=== PATIENT | female | born 1980 | race Asian ===

== ENCOUNTER 2016-07-22 10:40 | Inpatient (IN) | payer OTHER ==
[2016-07-22] VITALS (33 sets, daily range): BP systolic 97–130; BP diastolic 57–85
[~2016-07-22] VITALS: Ht 160 cm; Wt 74.4 kg
[2016-07-22] MEDS ORDERED: D5 LR IV SOLUTION 1,000 ML IV ONE (10:53)
[2016-07-22] MEDS ORDERED: D5 LR IV SOLUTION 1,000 ML IV SCH (11:10)
[2016-07-22 11:21] LABS: BASOPHILS % (AUTO) 1 % (0-10); EOSINOPHILS # (AUTO) 0.1 10^3/uL (0.0-0.3); EOSINOPHILS % (AUTO) 2 % (0-10); LYMPHOCYTES # (AUTO) 1.5 X 10^3 (1.0-4.0); LYMPHOCYTES % (AUTO) 19 % (12-44); MEAN CORPUSCULAR HEMOGLOBIN 30 PG (25-34); MEAN CORPUSCULAR HGB CONC 33 G/DL (32-36); MEAN CORPUSCULAR VOLUME 90 FL (80-99); MEAN PLATELET VOLUME 9.5 FL (7.4-10.4); MONOCYTES # (AUTO) 0.6 X 10^3 (0.0-1.0); MONOCYTES % (AUTO) 7 % (0-12); NEUTROPHILS # (AUTO) 5.7 X 10^3 (1.8-7.8); NEUTROPHILS % (AUTO) 72 % (42-75); PLATELET COUNT 249 10^3/uL (130-400); RED BLOOD COUNT 3.76 10^6/uL (4.35-5.85); RED CELL DISTRIBUTION WIDTH 12.9 % (10.0-14.5); WHITE BLOOD COUNT 7.9 10^3/uL (4.3-11.0)
[2016-07-22] MEDS ORDERED: LACTATED RINGERS 1,000 ML IV ONE ×2 (11:47→13:22)
[2016-07-22] MEDS ORDERED: SUFENTA 0.6MCG/ML BUPIVA 0.125 100 ML ONE (12:05)
[2016-07-22] MEDS ORDERED: fentaNYL INJECTION 100 MCG/2 ML AMP ONE (12:17)
[2016-07-22] MEDS ORDERED: BUPIVACAINE 0.25% 30 ML (SENSORCAINE) VIAL ONE (12:17)
[2016-07-22] MEDS ORDERED: CATHETER FLUSH 10 ML SYR IV PRN (13:30)
[2016-07-22] MEDS ORDERED: diphenhydrAMINE 50 MG/ML INJ (BENADRYL) IV PRN (13:30)
[2016-07-22] MEDS ORDERED: NALOXONE 0.4 MG/ML 1 ML (NARCAN) VIAL IV PRN (13:30)
[2016-07-22] MEDS ORDERED: ONDANSETRON 4 MG/2 ML (SDV) Z0FRAN IV PRN (13:30)
[2016-07-22] MEDS ORDERED: EPIDURAL (SUFENTA 0.6MCG/ML BUPIVA 0.125%) 100 ML BAG EPI SCH (13:30)
[2016-07-22] MEDS ORDERED: fentaNYL INJECTION 100 MCG/2 ML AMP INJ ONE (13:30)
[2016-07-22] MEDS ORDERED: CATHETER FLUSH 10 ML SYR IV SCH (14:00)
[2016-07-22] MEDS ORDERED: OXYTOCIN/NORMAL SALINE 500 ML IV SCH ×2 (14:18→15:59)
[2016-07-22] MEDS ORDERED: TETANUS,DIPTH,PERTUSS P/F (BOOSTRIX) 0.5 ML VIAL IM ONE (16:00)
[2016-07-22] MEDS ORDERED: MEASLES,MUMPS,RUBELLA 1 EA INJ SC ONE (16:00)
[2016-07-22] MEDS ORDERED: BENZOCAINE/MENTHOL (DERMOPLAST) 56 ML CAN TP PRN (16:00)
[2016-07-22] MEDS ORDERED: oxyCODONE/APAP 10/325MG (PERCOCET 10) TABLET PO PRN (16:00)
--- NOTE | 2016-07-22 16:05 | History & Physical ---
History and Physical TERM AT 38-5/7 WEEKS' GESTATION IN LABORthis patient is a 35-year-old [place] female with an EDC of 5 [phone] putting her at 38-5/7 weeks gestation. She was seen in clinic on Friday and Friday and found to be dilating from 4-5 and now is almost 6 cm in clinic. She was sent to labor and delivery as she was bartolo every 6 or 8 minutes. There was a bulging bag in the vagina dictated that this was felt like just prior to her first delivery which happened after only 3 hours of labor. GBS culture after 35 weeks gestation was negative. Patient denies rupture membranes. She has had some spotting Allergies are none Indications are vitamins Family social obstetric surgical and medical histories are per the antepartum record HEENT exam is normal Neck is supple no lymphadenopathy no thyromegaly Abdomen is gravid soft nontender nondistended Extreme show clubbing cyanosis. There is no Homans sign. Pelvic exam shows cervix at last check in my clinic that was right at 6 cm, 60- 70 percent effaced, 0-1 station bulging bag into the vagina vertex presentation and intact membranes Laboratory Tests 07/22/16 10:50 assessment and plan term at 38-5/7 weeks' gestation with a prolonged latent labor and advanced cervical dilation in clinic. She was bartolo cystoscopy with early labor. Patient now been admitted has labored review hours and is completely dilated delivery is imminent. Allergies and Home Medications Allergies Coded Allergies: No Known Drug Allergies (Unverified , 07/22/16) Clinical Quality Measures DVT/VTE Risk/Contraindication: Risk Factor Score Per Nursin RFS Level Per Nursing on Admit: 1=Low/No VTE PPX CUBA ALMEIDA MD July 22, 2016 4:05 pm
[2016-07-22] MEDS: KETOROLAC 30 MG/ML VIAL IV SCH ×2 (18:24→23:00)
[2016-07-22] MEDS: DOCUSATE SODIUM 100 MG (COLACE) CAP PO SCH (22:15)
[2016-07-23 01:00] VITALS: BP 97/52
[2016-07-23] MEDS: KETOROLAC 30 MG/ML VIAL IV SCH (04:29)
[2016-07-23 05:20] VITALS: BP 91/53
--- NOTE | 2016-07-23 06:00 | OPERATIVE REPORT ---
DATE OF SERVICE: 07/22/2016 DELIVERY NOTE: The patient delivered by term, spontaneous vaginal delivery of a viable female infant with Apgars of 8 and 9 at 1 and 5 minutes respectively, weight was 7 pounds 6 ounces, time was 1641. The infant was bulb suctioned on delivery of the head and again on completion of the delivery. The patient only pushed twice to affect the delivery. The had spontaneous cry, moved all the extremities, was quickly pink. Had excellent tone and reflexes. The umbilical cord was doubly clamped when it became pulseless. Father cut the cord. The baby was passed to mom's abdomen. The placenta delivered spontaneously april Bee. It was normal with a 3 vessel cord. It was sent to pathology secondary to her prolonged, latent labor. Cord bloods were obtained including an umbilical cord arterial blood gas due to patient having some decels and relatively poor variability throughout the terminal part of the labor. Blood gas was reported as 7.28. The cervix, rectum, perineum and vagina were examined and found intact, except for a left inner labia majora first degree laceration of approximately 5 cm. This was repaired with a single suture of 3-0 Vicryl in a running locked fashion to good reapproximation and good hemostasis. The sponge and needle counts were correct on completion of delivery and the repair. Estimated blood loss was between 200-250 mL. The patient tolerated the delivery and the repair well and remained in the LDR. The baby remained with the mom. Job ID: [id number] DocumentID: [id number] Dictated Date: 07/22/2016 16:56:25 Industrial Equipment Mechanic Date: 07/23/2016 05:59:57 Dictated By: CUBA ALMEIDA MD
--- NOTE | 2016-07-23 07:49 | Progress Note-Standard ---
Standard Progress Note Progress Notes/Assess & Plan Progress/Assessment & Plan this patient is without complaint. She is ambulating, voiding, tolerating fairly well, has good pain control. Vital Signs Date Time Temp Pulse Resp B/P (MAP) Pulse Ox O2 Delivery O2 Flow Rate FiO2 07/23/16 05:20 98.2 62 18 91/53 96 07/23/16 01:00 98.2 67 18 97/52 97 07/22/16 22:15 98.2 74 18 97/57 07/22/16 18:40 62 18 130/70 07/22/16 18:30 98.2 07/22/16 18:15 74 18 113/73 07/22/16 18:00 68 18 108/66 07/22/16 17:45 66 18 106/68 07/22/16 17:30 67 18 107/61 07/22/16 17:15 64 18 115/63 07/22/16 17:00 75 18 113/69 07/22/16 16:45 76 18 109/66 07/22/16 16:37 97.6 07/22/16 16:30 64 18 122/81 99 07/22/16 16:15 63 18 114/78 99 07/22/16 16:00 63 18 105/70 98 07/22/16 15:45 63 18 100/58 98 07/22/16 15:30 66 18 105/73 98 07/22/16 15:15 58 18 106/68 98 07/22/16 15:00 58 18 98 07/22/16 14:45 64 18 98 07/22/16 14:30 60 18 99/59 97 07/22/16 14:15 76 18 107/71 97 07/22/16 14:00 65 18 109/70 97 07/22/16 13:45 61 18 110/69 96 07/22/16 13:30 61 18 110/67 98 07/22/16 13:15 67 18 108/69 97 07/22/16 13:00 68 18 112/70 97 07/22/16 12:55 73 18 100/66 97 07/22/16 12:50 74 18 114/70 98 07/22/16 12:45 97.9 68 18 112/70 97 07/22/16 12:40 74 18 118/76 99 07/22/16 12:35 75 18 119/85 99 07/22/16 12:30 72 18 121/83 99 07/22/16 12:25 76 18 122/80 99 07/22/16 12:15 71 18 108/69 07/22/16 11:45 78 18 101/62 07/22/16 11:15 73 18 101/60 07/22/16 10:45 74 18 121/76 I & O 07/23/16 07:00 Intake Total 500 ml Balance 500 ml vital signs are stable. Patient is afebrile. Fundus is firm below the umbilicus and nontender. Extreme show no clubbing or cyanosis. There is no Homans sign. There is some pretibial pitting is normal. Assessment and plan day number 1 status post term spontaneous vaginal delivery at 38-5/7 weeks. Patient is doing well and plan is for discharge home tomorrow although patient request discharged today we will allow. Final Diagnosis 38-5/7 weeks' gestation in spontaneous vaginal delivery CUBA ALMEIDA MD July 23, 2016 07:49
[2016-07-23] MEDS ORDERED: IBUP-1780 PO (07:51)
[2016-07-23] MEDS ORDERED: DOCU100C37 PO (07:51)
[2016-07-23] MEDS ORDERED: OXYC-465 PO (07:51)
--- NOTE | 2016-07-23 07:52 | Discharge Instructions ---
Discharge Instructions Discharge Medications New, Converted or Re-Newed RX: RX on Chart Patient Instructions Patient Instructions: as directed Return to The Hospital For: as directed Activity & Diet Discharge Diet: No Restrictions Activity as Tolerated: No Orders-Post D/C & Referrals Follow Up Appt: Call to make follow up appt. for patient in 4 weeks. Activity Per routine post vaginal delivery instructions. Diet as tolerated Patient may shower or tub bathe as desired. CUBA ALMEIDA MD July 23, 2016 07:52
[2016-07-23 09:36] VITALS: BP 123/59
[2016-07-23] MEDS: DOCUSATE SODIUM 100 MG (COLACE) CAP PO SCH ×2 (09:38→19:59)
[2016-07-23] MEDS ORDERED: TETANUS,DIPTH,PERTUSS P/F (BOOSTRIX) 0.5 ML VIAL IM ONE (10:35)
[2016-07-23] MEDS ORDERED: IBUPROFEN 800 MG (MOTRIN) TAB PO ONE (10:43)
[2016-07-23] MEDS: IBUPROFEN 800 MG (MOTRIN) TAB PO SCH ×3 (10:47→23:30)
--- NOTE | 2016-07-23 11:37 | Anesthesia-Regional Post-Op ---
Regional Patient Condition Mental Status: Alert, Oriented x3 Circulation: Same as Pre-Op Headache: Absent Sensation: Full Recovery Motor Block: Absent Post Op Complications Complications None Follow Up Care/Instructions Patient Instructions None needed. Anesthesia/Patient Condition Patient is doing well, no complaints, stable vital signs, no apparent adverse anesthesia problems. No complications reported per nursing. CISCO PLAZA CRNA July 23, 2016 11:37
[2016-07-23 14:00] VITALS: BP 91/52
[2016-07-23 18:00] VITALS: BP 92/64
[2016-07-23 23:30] VITALS: BP 103/67
[2016-07-24] MEDS: IBUPROFEN 800 MG (MOTRIN) TAB PO SCH ×2 (05:32→11:42)
[2016-07-24 05:36] VITALS: BP 100/68
--- NOTE | 2016-07-24 07:35 | Progress Note-Standard ---
Standard Progress Note Progress Notes/Assess & Plan Progress/Assessment & Plan this patient is without complaint. She is ambulating, voiding, tolerating fairly well, has good pain control. Vital Signs Date Time Temp Pulse Resp B/P (MAP) Pulse Ox O2 Delivery O2 Flow Rate FiO2 07/23/16 05:20 98.2 62 18 91/53 96 07/23/16 01:00 98.2 67 18 97/52 97 07/22/16 22:15 98.2 74 18 97/57 07/22/16 18:40 62 18 130/70 07/22/16 18:30 98.2 07/22/16 18:15 74 18 113/73 07/22/16 18:00 68 18 108/66 07/22/16 17:45 66 18 106/68 07/22/16 17:30 67 18 107/61 07/22/16 17:15 64 18 115/63 07/22/16 17:00 75 18 113/69 07/22/16 16:45 76 18 109/66 07/22/16 16:37 97.6 07/22/16 16:30 64 18 122/81 99 07/22/16 16:15 63 18 114/78 99 07/22/16 16:00 63 18 105/70 98 07/22/16 15:45 63 18 100/58 98 07/22/16 15:30 66 18 105/73 98 07/22/16 15:15 58 18 106/68 98 07/22/16 15:00 58 18 98 07/22/16 14:45 64 18 98 07/22/16 14:30 60 18 99/59 97 07/22/16 14:15 76 18 107/71 97 07/22/16 14:00 65 18 109/70 97 07/22/16 13:45 61 18 110/69 96 07/22/16 13:30 61 18 110/67 98 07/22/16 13:15 67 18 108/69 97 07/22/16 13:00 68 18 112/70 97 07/22/16 12:55 73 18 100/66 97 07/22/16 12:50 74 18 114/70 98 07/22/16 12:45 97.9 68 18 112/70 97 07/22/16 12:40 74 18 118/76 99 07/22/16 12:35 75 18 119/85 99 07/22/16 12:30 72 18 121/83 99 07/22/16 12:25 76 18 122/80 99 07/22/16 12:15 71 18 108/69 07/22/16 11:45 78 18 101/62 07/22/16 11:15 73 18 101/60 07/22/16 10:45 74 18 121/76 I & O 07/23/16 07:00 Intake Total 500 ml Balance 500 ml vital signs are stable. Patient is afebrile. Fundus is firm below the umbilicus and nontender. Extreme show no clubbing or cyanosis. There is no Homans sign. There is some pretibial pitting is normal. Assessment and plan day number 1 status post term spontaneous vaginal delivery at 38-5/7 weeks. Patient is doing well and plan is for discharge home tomorrow although patient request discharged today we will allow. July 24, 2016 Patient without complaint. She is ambulating, voiding, tolerating by mouth well , denies chest pain, denies shortness of breath, denies nausea vomiting, has good pain control and is requesting discharge home. Vital Signs Date Time Temp Pulse Resp B/P (MAP) Pulse Ox O2 Delivery O2 Flow Rate FiO2 07/24/16 05:36 97.0 62 20 100/68 98 07/23/16 23:30 97.3 68 18 103/67 95 07/23/16 18:00 98.0 75 16 92/64 98 07/23/16 14:00 97.8 71 16 91/52 98 07/23/16 09:36 98.1 72 18 123/59 vital signs are stable. Patient afebrile. Fundus is firm below the umbilicus and nontender. Extremities show no clubbing cyanosis. There is no Homans sign. There is some pretibial pitting edema that is normal. Assessment and plan day number 2 doing well. Plan is for discharge home with follow-up in clinic Final Diagnosis 38 5/7 weeks' gestation with spontaneous vaginal delivery CUBA ALMEIDA MD July 24, 2016 7:35 am
[2016-07-24 09:15] VITALS: BP 101/65
[2016-07-24] MEDS: DOCUSATE SODIUM 100 MG (COLACE) CAP PO SCH (09:41)
[2016-07-24 13:15] VITALS: BP 101/65
== END 2016-07-24 13:15 | disposition home or self-care (01) | DRG 775 ==
LOC: LDRP 10:40
PROVIDERS: ADMIT Obstetrics & Gynecology; ATTEND Obstetrics & Gynecology
PROC: 10E0XZZ Delivery of Products of Conception, External Approach (ICD-10-PCS; principal; 2016-07-22)
PROC: 0HQ9XZZ Repair Perineum Skin, External Approach (ICD-10-PCS; 2016-07-22)
DX: O62.0 Primary inadequate contractions (principal); O70.0 First degree perineal laceration during delivery; Z37.0 Single live birth; Z3A.38 38 weeks gestation of pregnancy
CPT/HCPCS: 36415; 85025; 86850; 86900; 86901; 90715; 99212